=== PATIENT | female | born 1965 | race Two or more races ===

== ENCOUNTER → 2018-07-23 | Outpatient (CLI) | payer OTHER ==
[~2018-07-23] VITALS: Ht 162.6 cm; Wt 57.6 kg
[~2018-07-23] MED LIST: SINCALIDE 1.15 MCG in IV NORMAL SALINE 50ML 30 ML IV ONE
--- NOTE | 2018-07-23 13:58 | RAD ---
Radionuclide hepatobiliary scan with gallbladder ejection fraction, 07/23/2018: HISTORY: Right upper quadrant pain Following IV injection of 5.1 mCi of technetium 99m Choletec there was prompt uptake of the radionuclide from the blood stream by the liver. Activity is present in the gallbladder at 10 minutes. Small bowel activity developed at 35 minutes. Additional imaging of the gallbladder was then performed following IV injection of 1.1 mcg of cholecystokinin. There is good gallbladder emptying with the gallbladder ejection fraction calculated at 89 percent. IMPRESSION: 1. Normal radionuclide hepatobiliary scan. 2. The gallbladder ejection fraction is 89 percent. Electronically signed by: Lincoln Stevenson MD (07/23/2018 10:57 AM) [facility]
== END | disposition home or self-care (01) ==
LOC: MERGE 07:34 → NM 07:34
PROVIDERS: ATTEND Internal Medicine Gastroenterology
DX: R10.11 Right upper quadrant pain (principal)
CPT/HCPCS: 78227; A9537; J2805